=== PATIENT | male | born 1995 | race Caucasian/White ===

== ENCOUNTER 2017-11-25 13:03 | Emergency (ER) | payer MEDICAID, OTHER ==
[~2017-11-25] VITALS: Ht 175.3 cm; Wt 89.0 kg
[~2017-11-25 13:03] MED LIST: MMW SWISH-SWAL; PENI500T PO
[2017-11-25] MEDS ORDERED: TETANUS/DIPHTHERIA TOXOID ADULT 0.5 ML VIAL IM ONE (13:15)
[2017-11-25] MEDS ORDERED: IBUPROFEN 800 MG TAB PO ONE (13:15)
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
[2017-11-25 13:48] VITALS: BP 130/69; PULSE 79; RESP 20; TEMP 98.4; O2SAT 97
[2017-11-25 13:53] VITALS: BP 132/70; PULSE 72
[2017-11-25] MEDS ORDERED: MUPI2OIN TOPICAL (14:04)
[2017-11-25] MEDS ORDERED: IBUP1TAB7 PO (14:04)
[2017-11-25] MEDS ORDERED: TRAM50TA PO (14:04)
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
[2017-11-25] MEDS ORDERED: DICL75TA PO (14:35)
[2017-11-25 14:52] VITALS: BP 127/75
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
== END 2017-11-25 15:02 | disposition home or self-care (01) ==
LOC: NEPE 13:03
DX: S60.212A Contusion of left wrist, initial encounter (principal); S80.12XA Contusion of left lower leg, initial encounter; S80.211A Abrasion, right knee, initial encounter; S80.212A Abrasion, left knee, initial encounter; V29.9XXA Motorcycle rider (driver) (passenger) injured in unspecified traffic accident, initial encounter; Z23 Encounter for immunization
CPT/HCPCS: 73110; 73130; 73502; 73552; 90471; 90714